=== PATIENT | male | born 1975 ===

== ENCOUNTER 2016-12-03 14:24 | Emergency (ER) | payer SELFPAY ==
[2016-12-03 14:29] VITALS: BP 140/74; PULSE 82; RESP 20; TEMP 98.4; O2SAT 98
--- NOTE | 2016-12-03 14:39 | ED PDOC ---
HPI: General Adult Time Seen by Provider: 12/03/16 14:30 Chief Complaint (Nursing): ENT Problem Chief Complaint (Provider): bilateral ear pain History Per: Patient, Parts Counter Associate (Maria Guadalupe Baer RN at bedside for Maltese Translation) History/Exam Limitations: no limitations Additional Complaint(s): Delano Scherer is a 41 year old male, with no previous medical history, who presents to the ED with complaints of left ear pain which has been ongoing for the past 2 months and right ear pain which developed 3 days. He denies any fever , chills, nausea, dizziness or coughing. Patient states he has discharge from left ear for 1 month and started to notice discharge from right ear a few days ago. He took 1 dose of motrin the other day but this did not help. PMD: none provided Past Medical History Reviewed: Historical Data, Nursing Documentation, Vital Signs Vital Signs: Last Vital Signs Temp 98.4 F 12/03/16 14:27 Pulse 82 12/03/16 14:27 Resp 20 12/03/16 14:27 BP 140/74 12/03/16 14:27 Pulse Ox 98 12/03/16 14:45 - Medical History PMH: No Chronic Diseases - Surgical History Surgical History: No Surg Hx - Family History Family History: States: No Known Family Hx - Living Arrangements Living Arrangements: With Family - Social History Current smoker - smoking cessation education provided: No Ex-Smoker (has not smoked in the last 12 months): Yes (quit 2 years ago) Alcohol: None Drugs: Denies - Home Medications Home Medications: Ambulatory Orders Medication Instructions Recorded Amoxicillin/Clavulanate [Augmentin 1 tab PO BID #14 tab 12/03/16 875 MG-125 MG] Ibuprofen [Motrin Tab] 800 mg PO Q8 PRN #20 tab 12/03/16 Neomycin/Polymyxin/Hydrocort 4 drop TOP BID #1 bottle 12/03/16 [Cortisporin Otic Soln] - Allergies Allergies/Adverse Reactions: Allergies Allergy/AdvReac Type Severity Reaction Status Date / Time No Known Allergies Allergy Verified 12/03/16 14:29 Review of Systems ROS Statement: Except As Marked, All Systems Reviewed And Found Negative Constitutional: Negative for: Fever, Chills ENT: Positive for: Ear Pain (bilateral) Respiratory: Negative for: Cough Gastrointestinal: Negative for: Nausea Neurological: Negative for: Headache, Dizziness Physical Exam - Reviewed Nursing Documentation Reviewed: Yes Vital Signs Reviewed: Yes - Physical Exam Appears: Positive for: Well, Non-toxic, No Acute Distress Skin: Negative for: Rash Eye Exam: Positive for: Normal appearance ENT: Positive for: Other (purulent discharge in bilateral auditory canals with erythema, exudate on TM's bilaterally, no perf or rupture bilaterally) Cardiovascular/Chest: Positive for: Regular Rate, Rhythm Respiratory: Positive for: Normal Breath Sounds. Negative for: Respiratory Distress Neurologic/Psych: Positive for: Alert, Oriented - ECG O2 Sat by Pulse Oximetry: 98 (RA) Pulse Ox Interpretation: Normal Medical Decision Making Medical Decision Making: Initial Impression: bilateral otitis externa Patient is medically stable for outpatient treatment at this time. Patient will be discharged home with Rx for augmentin, motrin and cortisporin ear drops. Counseling was provided and all questions were answered regarding diagnosis and need for follow up with an ear, nose, throat specialist. There is agreement to discharge plan. Return if symptoms persist or worsen. Scribe Attestation: Documented by Shannen Perez, acting as a scribe for Quynh Espinoza PA-C. Provider Scribe Attestation: All medical record entries made by the Scribe were at my direction and personally dictated by me. I have reviewed the chart and agree that the record accurately reflects my personal performance of the history, physical exam, medical decision making, and the department course for this patient. I have also personally directed, reviewed, and agree with the discharge instructions and disposition. Disposition - Clinical Impression Clinical Impression: Bilateral otitis externa - Patient ED Disposition Is Patient to be Admitted: No Doctor Will See Patient In The: Office Counseled Patient/Family Regarding: Studies Performed, Diagnosis, Need For Followup, Rx Given - Disposition Referrals: Kory Hernandez MD [Staff Provider] - [facility] [Outside] Disposition: Routine/Home Disposition Time: 14:50 Condition: STABLE Additional Instructions: Take prescription medications as directed. Follow up with clinic or with ear, nose and throat specialist in 2-3 days. Prescriptions: Amoxicillin/Clavulanate [Augmentin 875 MG-125 MG] 1 tab PO BID #14 tab Ibuprofen [Motrin Tab] 800 mg PO Q8 PRN #20 tab PRN Reason: Pain, Moderate (4-7) Neomycin/Polymyxin/Hydrocort [Cortisporin Otic Soln] 4 drop TOP BID #1 bottle Instructions: Otitis Externa (ED) Print Language: GREENLANDIC
== END 2016-12-03 15:04 | disposition home or self-care (01) ==
LOC: H.ER 14:24
DX: H60.93 Unspecified otitis externa, bilateral (principal)

== ENCOUNTER 2017-11-22 14:30 | Emergency (ER) | payer SELFPAY ==
[2017-11-22 14:41] VITALS: BP 157/75; PULSE 88; RESP 16; TEMP 98.6; O2SAT 99
--- NOTE | 2017-11-22 14:51 | ED PDOC ---
Lower Extremity Pain/Injury Time Seen by Provider: 11/22/17 14:48 Chief Complaint (Nursing): Lower Extremity Problem/Injury Chief Complaint (Provider): Rigth great toe pain, swelling History Per: Patient History/Exam Limitations: no limitations Onset/Duration Of Symptoms: Days (1 week) Current Symptoms Are (Timing): Still Present Additional Complaint(s): 42 yo male with no medical problems presents with pain and swelling of the left great toe. No fever/chills. Pt states he has not taken anything for pain. Past Medical History Reviewed: Historical Data, Nursing Documentation, Vital Signs Vital Signs: Last Vital Signs Temp 98.6 F 11/22/17 14:39 Pulse 88 11/22/17 14:39 Resp 16 11/22/17 14:39 BP 157/75 H 11/22/17 14:39 Pulse Ox 99 11/22/17 14:39 - Medical History PMH: No Chronic Diseases - Surgical History Surgical History: No Surg Hx - Family History Family History: States: Unknown Family Hx - Home Medications Home Medications: Ambulatory Orders Medication Instructions Recorded Amoxicillin/Clavulanate [Augmentin 1 tab PO BID #14 tab 12/03/16 875 MG-125 MG] Ibuprofen [Motrin Tab] 800 mg PO Q8 PRN #20 tab 12/03/16 Neomycin/Polymyxin/Hydrocort 4 drop TOP BID #1 bottle 12/03/16 [Cortisporin Otic Soln] Cephalexin [Keflex] 500 mg PO BID #14 capsule 11/22/17 Ibuprofen [Motrin Tab] 800 mg PO Q6H PRN #20 tab 11/22/17 - Allergies Allergies/Adverse Reactions: Allergies Allergy/AdvReac Type Severity Reaction Status Date / Time No Known Allergies Allergy Verified 12/03/16 14:29 Review of Systems ROS Statement: Except As Marked, All Systems Reviewed And Found Negative Constitutional: Negative for: Fever, Chills Skin: Positive for: Other Physical Exam - Reviewed Nursing Documentation Reviewed: Yes Vital Signs Reviewed: Yes - Physical Exam Appears: Positive for: Well, Non-toxic, No Acute Distress Head Exam: Positive for: ATRAUMATIC, NORMAL INSPECTION, NORMOCEPHALIC Skin: Positive for: Warm. Negative for: Normal Color (Edema and erythema of the right medial nail fold, no drainage ) Eye Exam: Positive for: Normal appearance ENT: Positive for: Normal ENT Inspection Neck: Positive for: Normal, Painless ROM Respiratory: Negative for: Accessory Muscle Use, Respiratory Distress Back: Positive for: Normal Inspection Extremity: Positive for: Normal ROM Neurologic/Psych: Positive for: Alert, Oriented - ECG O2 Sat by Pulse Oximetry: 99 Medical Decision Making Medical Decision Making: Motrin PO in ER. Disposition - Clinical Impression Clinical Impression: Ingrown toenail - Patient ED Disposition Is Patient to be Admitted: No Counseled Patient/Family Regarding: Diagnosis, Need For Followup, Rx Given - Disposition Disposition: Routine/Home Disposition Time: 14:49 Condition: GOOD Additional Instructions: Warm soaks. Follow-up with podiatry. Prescriptions: Cephalexin [Keflex] 500 mg PO BID #14 capsule Ibuprofen [Motrin Tab] 800 mg PO Q6H PRN #20 tab PRN Reason: Pain Instructions: Ingrown Toenail Print Language: DANISH
== END 2017-11-22 15:13 | disposition home or self-care (01) ==
LOC: H.ER 14:30
DX: L60.0 Ingrowing nail (principal)